=== PATIENT | male | born 1960 | race African-American/Black ===

== ENCOUNTER 2017-07-13 13:51 | Emergency (ER) | payer MEDICAID ==
[~2017-07-13] VITALS: Ht 172.7 cm; Wt 75.0 kg
[~2017-07-13 13:51] MED LIST: ALBU18HF2; RITO100T PO; SPIR25TA4 PO; SULF-165; TAMS0.4C31; intelence
[2017-07-13] MEDS ORDERED: ACETAMINOPHEN 500MG TABLET PO ONE (15:00)
[2017-07-13] MEDS ORDERED: IBUPROFEN 600MG TABLET PO ONE (15:00)
[2017-07-13 16:19] VITALS: BP 131/84
== END 2017-07-13 16:21 | disposition home or self-care (01) ==
LOC: ER 14:28
DX: S90.32XA Contusion of left foot, initial encounter (principal); J45.909 Unspecified asthma, uncomplicated; Z88.8 Allergy status to other drugs, medicaments and biological substances; X58.XXXA Exposure to other specified factors, initial encounter; Y93.89 Activity, other specified; Y92.89 Other specified places as the place of occurrence of the external cause; Y99.8 Other external cause status
CPT/HCPCS: 73630; 99284